=== PATIENT | male | born 1950 | race Two or more races ===

== ENCOUNTER 2025-01-27 06:43 | Day surgery (SDC) | payer OTHER ==
[2025-01-27] VITALS (8 sets, daily range): BP systolic 93–118; BP diastolic 66–86; PULSE 86–96; RESP 12–21; O2SAT 96–98
[~2025-01-27] VITALS: Ht 182.9 cm; Wt 68.9 kg
[~2025-01-27 06:43] MED LIST: CARV6.2517 PO; FLUT1AER3 IN; MELO7.5T7 PO; OME20T PO; OMEP-434 PO; PROC10TA6 PO; TRAZ-228 PO
[2025-01-27] MEDS: IODIXANOL 320MG/ML 100ML BTL IV ONE (09:20)
[2025-01-27] MEDS: LIDOCAINE 2%HCL (LOCAL ANESTH.) INJ 20ML MDV ONE (09:53)
[2025-01-27] MEDS: ANGIOMAX 250 MG VIAL IV ONE (09:53)
--- NOTE | 2025-01-27 09:53 | DVHOP2 ---
Operative Report Operative Report CARDIAC AUTO TECHNICIAN PROCEDURE REPORT [place], [place] Date of Service: 01/27/25 [employer] Distribution System Operator: Alisa Castillo MD PROCEDURES PERFORMED: Coronary angiogram, left heart catheterization, conscious sedation administration and supervision, less than 15 minutes; fluoroscopy use and interpretation. PREOPERATIVE DIAGNOSES: r/o ischemic heart disease POSTOP DIAGNOSIS: chest pain/ DESCRIPTION OF PROCEDURE: The patient or appropriate family signed informed consent understanding the risks, benefits and alternatives of the procedure, they wished to proceed. The patient was brought to the cardiac radiographer cardiac catheterization in n.p.o. state. The patient was prepped in a sterile fashion. Sedation was used per cardiac cath protocol. I administered 2 mL of 2% lidocaine to the right wrist. With an antegrade front wall puncture. I cannulated the right radial artery and placed a 6-Wolof Glidesheath slender. Next, an intra-arterial spasmolytic was administered. Next, a - 6French Dwight catheter and JR4 diagnostic and were used for coronary angiogram and LVEDP measurement and pressure pullback. At the completion of procedure, all guides and wires were removed, and there were no immediate complications. 3000 U of IV heparin given FINDINGS: RCA: Moderate vessel off the right sinus of Valsalva, there is no severe flow limiting stenosis. LEFT MAIN: Moderate size left main, it bifurcates into LAD and circumflex. no stenosis CIRCUMFLEX: Moderate caliber vessel coming off the left main with no flow limiting stenosis. LAD: LAD is a moderate caliber vessel coming of the left main. no stenosis. LVEDP of 11 mhg CONCLUSIONS: 1. NO severe epicardial cad noted PLAN: Aggressive risk factor modification and medical management for the patient. ALISA CASTILLO MD January 27, 2025 09:53
[2025-01-27] MEDS: SODIUM CHL 0.9% 0 ML ONE (09:54)
[2025-01-27] MEDS: VERAPAMIL 2.5MG/ML INJ 2ML VIAL IV ONE (09:54)
[2025-01-27] MEDS: HEPARIN SODIUM (PORCINE) 5000 UNITS/ML 1ML VIAL ONE (09:54)
[2025-01-27] MEDS: MIDAZOLAM HCL 2MG/2ML 2ml VIAL (1mg/ml) ONE (09:54)
[2025-01-27] MEDS: fentaNYL CITRATE 100 MCG/2 ML VL ONE (09:55)
== END 2025-01-27 12:08 | disposition home or self-care (01) ==
LOC: CATH 06:43
PROVIDERS: ATTEND Internal Medicine
DX: R07.9 Chest pain, unspecified (principal); R94.39 Abnormal result of other cardiovascular function study
CPT/HCPCS: 93458; C1769; C1894; J1644; J2250; J3010; Q9967; 99152